=== PATIENT | male | born 1980 | race Caucasian/White ===

== ENCOUNTER 2018-03-16 13:10 | Emergency (ER) | payer OTHER ==
[2018-03-16 13:32] VITALS: TEMP 98.1
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
[2018-03-16 17:14] VITALS: BP 142/97; PULSE 75; RESP 16
== END 2018-03-16 17:14 | disposition home or self-care (01) ==
LOC: EC 13:10
DX: M79.671 Pain in right foot (principal); M25.561 Pain in right knee; M25.562 Pain in left knee; L53.9 Erythematous condition, unspecified; M54.2 Cervicalgia; F17.200 Nicotine dependence, unspecified, uncomplicated; V49.49XA Driver injured in collision with other motor vehicles in traffic accident, initial encounter; Y93.89 Activity, other specified; Y92.410 Unspecified street and highway as the place of occurrence of the external cause
CPT/HCPCS: 72125; 99284